=== PATIENT | male | born 1945 | race Caucasian/White ===

== ENCOUNTER 2018-06-21 14:01 | Outpatient (CLI) | payer OTHER ==
[~2018-06-21] VITALS: Ht 172.7 cm; Wt 63.5 kg
[~2018-06-21 14:01] MED LIST: ALBUTEROL0.63 MG/3; COZAAR25 MG
== END 2018-06-21 14:16 | disposition home or self-care (01) ==
LOC: OFIC 805 14:01
DX: R05 Cough (principal); R07.0 Pain in throat; J31.2 Chronic pharyngitis

== ENCOUNTER 2018-09-18 08:15 | Outpatient (CLI) | payer OTHER ==
[~2018-09-18] VITALS: Ht 152.4 cm; Wt 63.5 kg
== END 2018-09-18 08:30 | disposition home or self-care (01) ==
LOC: OFIC 805 08:15
DX: R05 Cough (principal); R07.0 Pain in throat; K21.0 Gastro-esophageal reflux disease with esophagitis

== ENCOUNTER 2025-03-22 16:07 | Emergency (ER) | payer OTHER ==
[~2025-03-22] VITALS: Ht 170.2 cm; Wt 57.2 kg
[2025-03-22 17:07] VITALS: BP 135/70; O2SAT 99
[2025-03-22] MEDS ORDERED: DEXAMETHASONE SODIUM PHOSPHATE 4 MG/ML VIAL IM STA (17:34)
[2025-03-22] MEDS ORDERED: DEXAMETHASONE SODIUM PHOSPHATE 4 MG/ML VIAL ONE (17:37)
== END 2025-03-22 18:10 | disposition home or self-care (01) ==
LOC: ER 16:07
DX: R68.2 Dry mouth, unspecified (principal)
CPT/HCPCS: 96372; 99282; J1100

== ENCOUNTER 2025-06-02 07:45 | Outpatient (CLI) | payer OTHER | END 2025-06-02 07:52 | disposition home or self-care (01) | LOC: SONOGRAMA 07:45 | DX: N40.1 Benign prostatic hyperplasia with lower urinary tract symptoms (principal); N13.30 Unspecified hydronephrosis ==

== ENCOUNTER 2025-06-21 14:16 | Outpatient (CLI) | payer OTHER | END 2025-06-21 14:32 | disposition home or self-care (01) | LOC: TOM 14:16 | DX: J90 Pleural effusion, not elsewhere classified (principal); J91.8 Pleural effusion in other conditions classified elsewhere ==

== ENCOUNTER 2025-07-03 00:14 | Inpatient (IN) | payer OTHER ==
[~2025-07-03] VITALS: Ht 167.6 cm; Wt 56.7 kg
[2025-07-03] VITALS (10 sets, daily range): BP systolic 138–178; BP diastolic 63–90; O2SAT 100
--- NOTE | 2025-07-03 00:23 | NUR ---
SE RECIBE PTE ALERTA Y ORIENTADO X3 QUIEN REFIERE VENIR POR ASMA. SE MIDEN S/V Y SE UBICA EN ARNOLD.
[2025-07-03] MEDS ORDERED: IPRATROPIUM BROMIDE 0.5 MG/2.5 ML AMPUL.NEB IH ONE ×2 (01:30→02:01)
[2025-07-03] MEDS ORDERED: LEVALBUTEROL HCL 0.63 MG/3 ML SOLUTION IH ONE ×2 (02:01→02:15)
[2025-07-03] MEDS ORDERED: METHYLPREDNISOLONE SOD SUCC 125 MG VIAL IV ONE (02:15)
[2025-07-03 02:22] LABS: BASO % 0.7 % (0.1-1.2); EOS # 0.33 (0.04-0.54); EOS % 2.7 % (0.7-7.0); LYMPH # 0.92 (1.18-3.74); LYMPH % 7.4 % (19.3-53.1); MEAN PLATELET VOLUME 12.80 fl (9.4-12.4); MONO # 1.09 (0.24-0.82); MONO % 8.8 % (4.7-12.5); NEUT # 9.96 (1.56-6.13); NEUT % 80.1 % (34.0-71.1); RED CELL DISTRIBUTION WIDTH 13.8 % (11.6-14.4)
[2025-07-03 02:49] LABS: ERYTHROCYTE SEDIMENTATION RATE 77 mm/hr (0-20)
--- NOTE | 2025-07-03 03:22 | NUR ---
SE OREINTA A PTE SOBRE TX MEDICO ORDENADO. SE REALIZA SERENITY DE MUESTRAS JAC ORDEN MEDICA Y BAJO MEDIDAS ASEPTICAS. VENOPUNCION PATENTE MORTEZA DE EDEMA Y ERITEMA EN H/L. SE COLOCA C/N Y SE NOTIIFCA A PERSONAL DE RT ORDENES MEDICA. SE NOTIFICA ESTUDIO ORDENADO.
[2025-07-03] MEDS ORDERED: METHYLPREDNISOLONE SOD SUCC 125 MG VIAL ONE (03:25)
--- NOTE | 2025-07-03 03:36 | NUR ---
SE RECIBE PTE A AREA DE CRITICO CAMA #1 SE CONECTA A MONITOR CARDIACO Y OXYMETRIA CONTINUA, CON VENOPUNCION EN LT #18 PATENTE MORTEZA DE EDEMA NI ERITEMA SE LE ADMINISTRAN MEDICAMENTOS Y SE MANTIENE EN OBSERVACION CONTINUA POR CAMBIOS SIGNIFICATIVOS.
[2025-07-03] MEDS ORDERED: CEFTRIAXONE SODIUM 1,000 MG VIAL IV ONE (04:00)
[2025-07-03] MEDS ORDERED: AZITHROMYCIN 500 MG VIAL IV ONE ×2 (04:00→04:50)
[2025-07-03] MEDS ORDERED: NITROGLYCERIN IN 5 % DEXTROSE 250 ML IV SCH ×2 (04:00→12:15)
[2025-07-03] MEDS ORDERED: CEFTRIAXONE SODIUM 1,000 MG VIAL ONE (04:18)
[2025-07-03] MEDS ORDERED: NITROGLYCERIN IN 5 % DEXTROSE 50 MG/250 ML BOTTLE IV ONE (04:18)
[2025-07-03 04:28] LABS: ALT/SGPT 67.0 U/L (12-78); AST/SGOT 53.0 U/L (15-37); BILIRUBIN TOTAL 0.46 mg/dL (0.3-1.2); BUN CREA RATIO 20.0 (7.0-25.0); CREATININE SERUM 1.37 mg/dL (0.70-1.30); GFR 49.99; GLOBULINA 3.6 G/DL (2.4-3.5); GLUCOSE FASTING 185.0 mg/dL (65-100); OSMOLALITY SERUM 289.0 MOSM/KG (275-295)
[2025-07-03 04:28] LABS: COVID-19 AG NEGATIVE (NEGATIVE)
--- NOTE | 2025-07-03 06:36 | NUR ---
SE LE COLOCA UN BIPAP VENTILATOR Y SE LE COLOCA UN LEOS BAJO MEDIDAS ASEPTICAS ADECUADAS POR ORDEN DE LA LASHONDA
--- NOTE | 2025-07-03 07:00 | NUR ---
SE RECIBE PACIENTE MASCULINO ALERTA Y ORIENTADO X 3 ESFERAS EN CAMA CON BARANDAS ELEVADAS POR SEGURIDAD. CONECTADO A MONITOR CARDIACO, OXIMETRIA DE PULSO Y ASISTIDO RESPIRATORIAMENTE POR UN BIPAP: IPAP:2, EPAP:5, FIO2:100% Y R:18. NO SE OBSERVA CON DISTRES RESPIRATORIO. RECIBIENDO TRIDIL 50/MG/250ML BAJANDO A 3ML/HR POR VENOPUNCION EN BRAZO DERECHO AREA MORTEZA DE EDEMA Y ERITEMA. SONDA URINARIA DRENANDO A GRAVEDAD 600ML DE ORINA COLOR TANNER. EXTREMIDADES INFERIORES MORTEZA DE EDEMA. SE EDUCA A PACIENTE SOBRE CONTINUIDAD DE TRATAMIENTO MEDICO, REFIERE ENTENDER. SE DELMY A PACIENTE EN CAMA CON BARANDAS ELEVADAS POR SEGURIDAD Y SE MANTIENE EN OBSERVACION POR CAMBIOS EN CONDICION MEDICA. PENDIENTE CONSULTA CON MEDICINA INTERNA DR.ORTIZ GUSMAN. SE MIDEN SIGNOS VITALES Y SE DOCUMENTAN EN EXPENDIENTE.
[2025-07-03] MEDS ORDERED: CHLORHEXIDINE GLUCONATE 120 ML BOTTLE TOP ONE (08:27)
--- NOTE | 2025-07-03 09:14 | NUR ---
SE REALIZA GENNA EN CAMA A PACIENTE EL CUAL TOLERA.
[2025-07-03] MEDS ORDERED: DEXTROSE 50 % IN WATER 0.5 G/ML DISP.SYRIN IV PRN (12:00)
[2025-07-03] MEDS ORDERED: INSULIN LISPRO 1,000 UNIT/10 ML UNITS SUBCUTANEO PRN (12:00)
[2025-07-03] MEDS ORDERED: PIPERACILLIN/TAZOBACTAM SODIUM 3.375 GM VIAL IV ONE (17:34)
[2025-07-03] MEDS ORDERED: PIPERACILLIN/TAZOBACTAM SODIUM 3.375 GM in 0.9 % SODIUM CHLORIDE 100 ML IV SCH (18:00)
[2025-07-04] VITALS (23 sets, daily range): BP systolic 87–154; BP diastolic 52–96; O2SAT 96–100
[2025-07-04] MEDS ORDERED: FAMOTIDINE/PF 20 MG/2 ML VIAL ONE (07:17)
[2025-07-04 07:30] LABS: INR 1.06
[2025-07-04 07:36] LABS: BUN CREA RATIO 23.0 (7.0-25.0); CREATININE SERUM 1.76 mg/dL (0.70-1.30); GFR 37.44; GLUCOSE FASTING 134.0 mg/dL (65-100); OSMOLALITY SERUM 293.0 MOSM/KG (275-295)
[2025-07-04 07:39] LABS: BASO % 0.1 % (0.1-1.2); EOS # 0.00 (0.04-0.54); EOS % 0.0 % (0.7-7.0); LYMPH # 0.70 (1.18-3.74); LYMPH % 5.7 % (19.3-53.1); MEAN PLATELET VOLUME 12.10 fl (9.4-12.4); MONO # 1.06 (0.24-0.82); MONO % 8.7 % (4.7-12.5); NEUT # 10.43 (1.56-6.13); NEUT % 85.2 % (34.0-71.1); RED CELL DISTRIBUTION WIDTH 13.1 % (11.6-14.4)
[2025-07-04] MEDS ORDERED: LOSARTAN POTASSIUM 25 MG TABLET PO SCH (09:00)
[2025-07-04] MEDS ORDERED: ENOXAPARIN SODIUM 40 MG/0.4 ML SYRINGE SUBCUTANEO SCH (09:00)
[2025-07-04] MEDS ORDERED: NIFEDIPINE 30 MG TAB.SA.OSM PO SCH (09:00)
[2025-07-04] MEDS ORDERED: FAMOTIDINE/PF 20 MG in 0.9 % SODIUM CHLORIDE 100 ML IV SCH (09:00)
[2025-07-04] MEDS ORDERED: SODIUM CL 0.9% 100 ML IV.SOLN IV ONE ×5 (12:11→23:53)
[2025-07-05] VITALS (17 sets, daily range): BP systolic 103–160; BP diastolic 59–98; O2SAT 95–100
[2025-07-05 06:58] LABS: BASO % 0.5 % (0.1-1.2); EOS # 0.06 (0.04-0.54); EOS % 0.5 % (0.7-7.0); LYMPH # 1.23 (1.18-3.74); LYMPH % 10.6 % (19.3-53.1); MEAN PLATELET VOLUME 11.90 fl (9.4-12.4); MONO # 1.10 (0.24-0.82); MONO % 9.5 % (4.7-12.5); NEUT # 9.07 (1.56-6.13); NEUT % 78.5 % (34.0-71.1); RED CELL DISTRIBUTION WIDTH 13.2 % (11.6-14.4)
[2025-07-05 07:22] LABS: BUN CREA RATIO 27.0 (7.0-25.0); CREATININE SERUM 1.92 mg/dL (0.70-1.30); GFR 33.87; GLUCOSE FASTING 108.0 mg/dL (65-100); OSMOLALITY SERUM 299.0 MOSM/KG (275-295)
[2025-07-05] MEDS ORDERED: 0.9 % SODIUM CHLORIDE 1,000 ML IV SCH (11:45)
[2025-07-05] MEDS ORDERED: METOPROLOL SUCCINATE 50 MG TAB.SR.24H PO NR (12:00)
[2025-07-05] MEDS ORDERED: SODIUM CL 0.9% 100 ML IV.SOLN IV ONE (14:58)
[2025-07-05 20:05] LABS: MONONUCLEAR 68.8 %; POLYMORPHONUCLEAR 31.2 %
[2025-07-05 20:06] LABS: GLU PLEURAL FLUID 124.0 mg/dl; LDH PLEURAL FLUID 132.0 U/L; TP PLEURAL FLUID 3.9 g/dl
[2025-07-06] MEDS ORDERED: SODIUM CL 0.9% 100 ML IV.SOLN IV ONE ×7 (00:17→17:53)
[2025-07-06 02:21] VITALS: BP 157/75; O2SAT 100
[2025-07-06] MEDS ORDERED: NIFEDIPINE 60 MG TAB.SA.OSM PO SCH (09:00)
[2025-07-06] MEDS ORDERED: METOPROLOL SUCCINATE 50 MG TAB.SR.24H PO SCH (09:00)
[2025-07-06 09:14] VITALS: BP 141/69; O2SAT 100
[2025-07-06 18:15] VITALS: BP 108/59
[2025-07-07 00:21] VITALS: BP 149/70; O2SAT 100
[2025-07-07] MEDS ORDERED: SODIUM CL 0.9% 100 ML IV.SOLN IV ONE (01:20)
[2025-07-07] MEDS ORDERED: FAMOTIDINE/PF 20 MG/2 ML VIAL ONE (07:15)
[2025-07-07 08:35] VITALS: BP 129/90; O2SAT 98
== END 2025-07-07 14:14 | disposition home or self-care (01) | DRG 194 ==
LOC: ER 00:15 → ICU-2 12:09 → ICU 18:30 → MEDI 07-05 19:34
PROVIDERS: Radiology Vascular & Interventional Radiology; Student in an Organized Health Care Education/Training Program; ADMIT Student in an Organized Health Care Education/Training Program; ATTEND Student in an Organized Health Care Education/Training Program
PROC: BB24ZZZ Computerized Tomography (CT Scan) of Bilateral Lungs (ICD-10-PCS; principal; 2025-07-03)
PROC: B246ZZZ Ultrasonography of Right and Left Heart (ICD-10-PCS; 2025-07-03)
PROC: 5A09457 Assistance with Respiratory Ventilation, 24-96 Consecutive Hours, Continuous Positive Airway Pressure (ICD-10-PCS; 2025-07-04)
DX: J18.9 Pneumonia, unspecified organism (principal); J90 Pleural effusion, not elsewhere classified; I11.0 Hypertensive heart disease with heart failure; I50.9 Heart failure, unspecified; R09.02 Hypoxemia